=== PATIENT | female | born 1950 | race Caucasian/White ===

== ENCOUNTER 2016-07-27 18:38 | Inpatient (IN) | payer MEDICARE, BC ==
[~2016-07-27] VITALS: Ht 170.1 cm; Wt 99.3 kg
--- NOTE | ~2016-07-27 | CON ---
[place], [place] REPORT [facility] CONSULTATION [id number] UNIT #: [id number] ROOM: 401 DOCTOR: TITUS BRANDON MD BIRTHDATE: [birth year] DOS: 07/28/2016 HISTORY OF PRESENT ILLNESS: This is a 66-year-old -[place] woman with a history of coronary artery disease. She has had coronary stents deployed in the last year and a half or so, details are not available. She had a stress test done in this hospital following stents, and it did not demonstrate any ischemia. She had come to the hospital because of epigastric discomfort. This feeling was not retrosternal, and she still is bothered by it. It did not radiate into the back nor to the shoulders. There is no accompanying nausea, any loss of appetite. She has not noticed any change in color of the stools. She has not had any exertional chest pain or pressure. She has some shortness of breath with exertion. No palpitations, dizziness, or loss of consciousness. She does not wake up short of breath at night. PAST MEDICAL HISTORY: Coronary artery disease as mentioned above, essential hypertension, bullous pemphigoid, seizure disorder, major depression, morbid obesity, diabetes with polyneuropathy. SOCIAL HISTORY: She does not smoke nor does she drink alcoholic beverage. She lives at home. HOME MEDICATIONS: Numerous, that include DuoNeb, Kaopectate, BuSpar, calcium with vitamin D, clopidogrel, folic acid, hydrocodone, acetaminophen, Keppra, levothyroxine, lisinopril, loratadine, lorazepam, magnesium oxide, metoprolol, metronidazole, pravastatin, prednisone, pregabalin/Lyrica, ranitidine, Florastor, sertraline, temazepam, and insulin. PHYSICAL EXAMINATION: GENERAL: The patient is moderately obese. Her complexion is fine. She is not febrile. There is no thyromegaly or finger clubbing. VITAL SIGNS: Pulse is regular at 64, blood pressure 145/85. NECK: Normal JVP. AJR is negative. No bruit in the neck is present. HEART: Auscultation of the heart reveals no murmurs or rubs. The rate is regular. She has no edema in the lower extremities. RESPIRATORY: Lungs are fairly clear to auscultation. ABDOMEN: Epigastrium is tender with no guarding or rigidity. DIAGNOSTIC STUDIES: An ECG showed normal sinus rhythm at 67 beats per minute with complete right bundle branch block and left anterior hemiblock. Previous ECGs have shown same finding. LABORATORY DATA: Troponin-I level is normal. Electrolytes are normal. Potassium 4.3, BUN 16, creatinine 0.79. Liver enzymes are normal. Lipase is 172. Troponin-I is less than 0.015. IMPRESSION: This patient with coronary artery disease, had epigastric pain, not much in terms of chest discomfort. Her EKG is unremarkable. Troponin levels are normal, i.e., she has ruled out for acute myocardial infarction. [place], [place] REPORT OF CONSULTATION NAME: FANY HAMM UNIT #: [id number] ROOM: [facility] DOCTOR: TITUS BRANDON MD BIRTHDATE: [birth year] I do not recommend any further cardiac workup in this patient. Gastrointestinal etiology maybe needed to be sought to explain her symptoms. I thank you for this consult. TITUS BRANDON MD CM:CONSTR:REPORT OF CONSULTATION 07/28/16 0747 interface
--- NOTE | ~2016-07-27 | WRIGHTHP ---
[place], [place] PATIENT HISTORY AND PHYSICAL EXAM NAME: FANY HAMM [facility] #: [id number] UNIT #: [id number] ROOM: 401 DOCTOR: SONYA SOLORZANO MD BIRTHDATE: [birth year] DOS: 07/28/2016 ADMISSION DIAGNOSES AND PAST MEDICAL HISTORY: The patient is a 66-year-old female with a past medical history of: 1. Clostridium difficile colitis in 04/2016. 2. Adult failure to thrive. 3. Obesity. 4. Coronary artery disease of the [place] vessels, status post stent placement. 5. Chronic obstructive pulmonary disease. 6. Benign essential hypertension. 7. Bullous pemphigoid. 8. Hypothyroidism. 9. Mixed hyperlipidemia. 10. History of seizure disorder. 11. History of cerebrovascular accident with left hemiparesis. 12. Type 2 diabetes mellitus, the patient on insulin. HISTORY OF PRESENT ILLNESS: The patient presented to the Emergency Department with complaints of chest pain and was seen by Dr. Gonzáles, who recommended that the patient should be admitted and treated for chest pain. After admission, the patient was seen by her [place] technician, Dr. Chadwick. The patient is symptom free now. The patient's pains were epigastric without any radiation or any other accompanying symptoms. No shortness of breath and no wheezing. The patient has chronic recurrent diarrhea. No abdominal pain and no shortness of breath. REVIEW OF SYSTEMS: LUNGS: No increasing shortness of breath or wheezing. GASTROINTESTINAL: No nausea or vomiting, with chronic recurrent diarrhea. CARDIOVASCULAR SYSTEM: Chest pains before coming to the hospital, but asymptomatic now. FAMILY HISTORY: Noncontributory. SOCIAL HISTORY: She lives at home with the help of her . Denies smoking cigarettes, alcohol and drug abuse. MEDICATIONS: Zoloft, Plavix, DuoNeb, levothyroxine, Pepcid, simvastatin, Keppra, metoprolol, prednisone, lorazepam, buspirone, Lyrica, Flagyl, temazepam, Vicodin, aspirin and DuoNeb. ALLERGIES: KNOWN ALLERGIES TO AMBIEN AND LEVAQUIN. PHYSICAL EXAMINATION: GENERAL: The patient is alert and oriented and morbidly obese with generalized weakness. HEENT AND NECK: Extraocular movements are intact. Sclerae are anicteric. Oral mucosa is moist and clean. No obvious facial weakness. Neck is supple without any lymphadenopathy. No thyromegaly. No JVD. No carotid arterial bruits. LUNGS: Clear to auscultation. No wheezing. No rhonchi. CARDIOVASCULAR SYSTEM: Heart rate is regular in rate and rhythm. S1 and S2 [place], [place] PATIENT HISTORY AND PHYSICAL EXAM NAME: FANY HAMM [facility] #: [id number] UNIT #: [id number] ROOM: 401 DOCTOR: SONYA SOLORZANO MD BIRTHDATE: [birth year] normally audible. No significant murmur or any other abnormal cardiac sounds. ABDOMEN: Soft, nontender. No obvious organomegaly. Bowel sounds are present. No obvious herniation. EXTREMITIES: Without significant cyanosis or edema. Warm to touch. CENTRAL NERVOUS SYSTEM: Alert and oriented x 3. Cranial nerves II-XII are intact. Speech is normal. The patient is able to move all extremities. Normal muscle strength. Deep tendon reflexes are equal on both sides. Plantars were downgoing. IMPRESSION AND PLAN: 1. Chest pains from uncertain etiology with negative cardiac enzymes, troponin I levels. The patient already evaluated by her [place] technician, Dr. Chadwick. Dr. Chadwick feels that her pains are more epigastric and noncardiac and nonischemic. Electrocardiogram was unremarkable. Dr. Chadwick has not recommended any further hospitalization or cardiac workup at this time. I will discharge her to home. The patient's troponin I levels have been negative. 2. Recent Clostridium difficile colitis, treated in April with Flagyl. The patient has chronic recurrent diarrhea. No other signs of infection. The patient's CBC performed at admission shows no leukocytosis or any signs of infection. 3. Generalized disability, obesity and multiple medical problems. Has adult failure to thrive with bed sore precautions, every 2-hour turning and use an air mattress. 4. History of cerebrovascular accident with left-sided weakness and disability. 5. Type 2 diabetes mellitus. The patient does take insulin. Uncontrolled diabetes, blood sugar 195, poor compliance with diet and treatment. 6. Benign essential hypertension, treated and controlled blood pressures. The patient's blood pressures are monitored during her stay at the hospital. 7. History of coronary artery disease of the [place] vessel, status post stent placement about a year and a half back, as reviewed by Dr. Chadwick. SONYA SOLORZANO MD CM:HISPHYS:PATIENT HISTORY AND PHYSICAL EXAMINATION 19 18 SONYA SOLORZANO MD 07/28/16 1920 interface
[~2016-07-27 18:38] MED LIST: ACTOPLUS MET 501 TAB PO; ACTOS15 M1 PO; ACTOS15 MG PO; ACYCLOVIR400 MG PO; ALLERGY10 MG PO; APAP PO; ASPIR-LOW81 MG PO; ASPIRIN CHILDRE80 MG PO; ASPIRIN81 M1 PO; ASPIRIN81 MG PO; ATIVAN0.5 MG PO; ATIVAN1 MG PO; AUGMENTIN 875 M1 TAB PO; AUGMENTIN 875-875 MG PO; AUGMENTIN 875875 MG PO; AYR NASAL GEL22 M1 NAS; B121000 MCG/1 IM; BACTRIM DS 8001 TA1 PO; BISCOLAX5 MG PO; BUMETANIDE1 MG PO; BUSPAR5 MG PO; CALCIUM + D SO1 EACH PO; CEFUROXIME AXE250 MG PO; CEFUROXIME250 MG PO; CEPHALEXIN500 M1 PO; CETIRIZINE HYDR10 MG PO; CHEST CONGESTI400 MG PO; CIPRO500 MG PO; CIPRO750 MG PO; CITALOPRAM20 MG PO; CLARITIN10 MG PO; COREG3.125 MG PO; CRANBERRY1 POW PO; CYMBALTA30 MG PO; DELTASONE2.5 MG PO; DEPAKOTE125 MG PO; DEPAKOTE250 MG PO; DESYREL100 MG PO; DIFLUCAN150 MG PO; DIVALPROEX SOD125 M1; DOXYCYCLINE100 M3 PO; DUONEB 3 MG/3 ML3 M1 INH; DUONEB 3 MG/3 ML3 M1 NEB; DYAZIDE 25 MG-31 CAP PO; EFFIENT10 MG PO; FERRIMIN 150150 M1 PO; FLORASTOR250 MG PO; GENTAMYCIN3 MG/ML OP; GOOD NEIGHBOR150 MG PO; HUMALOG100 U/ML SC; HUMULIN 70/30 703 M1; HUMULIN 70/30 703 M1 SC; HUMULIN 70/30 720 ML SC; HUMULIN R100 U/ML IJ; HUMULIN R100 U/ML SC; HUMULIN SC; INVOKANA100 M1 PO; ISORDIL10 M1 PO; KAOPECTATE525 MG/11 PO; KEFLEX500 M1 PO; KEFLEX500 MG PO; KEPPRA500 MG PO; LANTUS100 U/ML SC; LEVEMIR10 ML SC; LEVOFLOXACIN500 MG PO; LIPITOR80 MG PO; LISINOPRIL2.5 MG PO; LOPRESSOR25 MG PO; LOPRESSOR50 MG PO; LOTRIMIN 1%15 GM T; LYRICA150 MG PO; LYRICA50 M1 PO; LYRICA50 MG PO; LYRICA75 M1 PO; MACROBID100 M1 PO; MAG-OX 400400 MG PO; MAGNESIUM OXID400 MG PO; MAGOX 400400 MG PO; MEDROL DOSEPAK4 MG PO; METFORMIN500 MG PO; METOPROLOL25 MG PO; METRONIDAZOLE500 M1 PO; MIRALAX17 GM/DOSE PO; MOM30 ML PO; MOTRIN800 MG PO; MUCINEX DM 30/61 TAB PO; Metformin Hydr500 MG PO; NASONEX0.05 MG/AC NS; NATURE'S BLEND F1 MG PO; NEXIUM40 MG PO; NILSTAT,MY500000 UN/ PO; NITRO-DUR1 EACH TD; NITROGLYCER0.1 MG/H1 T; NITROGLYCERIN 0.3 MG/HR TD; NITROGLYCERIN0.3 MG SL; NITROSTAT0.4 MG SL; NORCO 5-325 TA1 EACH PO; NORCO 7.5-3251 EACH PO; NOVOLIN 701 UNIT/0.0 SC; NOVOLIN R100 U/ML; NOVOLIN R100 U/ML SC; NYSTATIN CREAM15 GM T; OS-CAL 500 + D1 TAB PO; OSCAL/D,OYSTER250 MG PO; OXYCODONE PO; PEPCID40 MG PO; PERCOCET 325 MG1 TA2 PO; PERCOCET 325 MG1 TA5 PO; PLAVIX75 M1 PO; PLAVIX75 MG PO; PRAVACHOL40 MG PO; PREDNISONE10 MG PO; PREDNISONE20 M1 PO; PREDNISONE20 MG PO; PREDNISONE5 MG PO; PRILOSEC20 M2 PO; PRINIVIL2.5 MG PO; RANEXA500 M1 PO; RESTORIL30 M1 PO; RESTORIL30 MG PO; SALINE NOSE SPR45 ML; SIMVASTATIN20 MG PO; SONATA10 MG PO; SYNTHROID,LEVO25 MCG PO; SYNTHROID,LEVO75 MCG PO; SYNTHROID0.025 MG; SYNTHROID0.125 MG PO; Synthroid,Lev100 MCG PO; Synthroid,Levo50 MCG PO; TESSALON PERLE100 M1 PO; TOPAMAX50 MG PO; TOPROL XL25 MG PO; TRESIBA FL100 UNIT/1 SC; TYLENOL325 M1 PO; TYLENOL325 M2 PO; TYLENOL500 MG PO; Tessalon Perle100 MG PO; VIBRAMYCIN100 MG PO; VITAMIN D31000 I1 PO; VITAMIN D31000 IU PO; VITAMIN D350000 UNIT PO; VITAMIN D50000 I2 PO; XIFAXAN550 MG PO; ZANTAC150 MG PO; ZESTRIL2.5 MG PO; ZITHROMAX250 MG PO; ZOCOR40 MG PO; ZOLOFT100 MG PO; ZOLOFT50 MG PO; [UNRECOGNIZED DRUG - CODE] SC; [UNRECOGNIZED DRUG - OTHER] SC
[2016-07-27 19:47] LABS: BASO % 0.4 % (0.0-1.0); EOS # 0.2 10*3/uL (0.0-0.4); EOS % 2.5 % (1.0-4.0); HEMATOCRIT 51.4 % (37.0-47.0); HEMOGLOBIN 16.4 g/dl (12.0-16.0); LYMPH # 2.3 10*3/uL (1.3-4.4); LYMPH % 29.2 % (27.0-41.0); MEAN CORPUSCULAR HGB 27.4 pg (27.0-31.0); MEAN CORPUSCULAR HGB CONC 31.9 g/dl (33.0-37.0); MONO # 0.4 10*3/uL (0.1-1.0); MONO % 5.7 % (3.0-9.0); NEUT # 4.8 10*3/uL (2.3-7.9); NEUT % 61.7 % (47.0-73.0); PLATELET COUNT AUTOMATED 304 10*3/uL (130-400); RED BLOOD COUNT 5.98 10*6/uL (4.10-5.10); RED CELL DISTRI WIDTH 14.6 % (0-14.5); WHITE BLOOD COUNT 7.7 10*3/uL (4.8-10.8)
[2016-07-27 19:56] LABS: PROTHROMBIN TIME 10.2 SECONDS (9.0-12.4)
[2016-07-27 20:03] LABS: ALBUMIN 3.3 gm/dl (3.1-4.5); ALKALINE PHOSPHATASE 96 U/L (45-117); BILIRUBIN, TOTAL 0.2 mg/dl (0.2-1.0); BUN 16 mg/dl (7-24); CARBON DIOXIDE 28 mmol/L (21-32); CHLORIDE 104 mmol/L (98-107); EST GLOM FILT AFRICAN AMERICAN > 60 ml/min; GLUCOSE 195 mg/dL (65-99); MAGNESIUM 1.8 mg/dL (1.5-2.1); POTASSIUM 4.3 mmol/L (3.5-5.1); SGOT/AST 21 IU/L (3-35); SGPT/ALT 21 U/L (12-78); SODIUM 142 mmol/L (136-145); TOTAL PROTEIN 8.6 gm/dL (6.4-8.2)
[2016-07-27 20:06] LABS: TROPONIN I < 0.015 ng/ml (<0.045)
[2016-07-28 21:40] LABS: BILIRUBIN NEGATIVE (NEGATIVE); BLOOD TRACE-INTACT (NEGATIVE); CLARITY SL CLOUDY (CLEAR); COLOR YELLOW (YELLOW); GLUCOSE 3+ (NEGATIVE); KETONE NEGATIVE (NEGATIVE); LEUKO ESTERASE TRACE (NEGATIVE); NITRITE NEGATIVE (NEGATIVE); PH 5.5 (5.0-9.0); PROTEIN 2+ (NEGATIVE); UROBILINOGEN 0.2 E.U./dl (0.2-1.0)
[2016-07-28 21:51] LABS: YEAST 1+
== END 2016-07-28 22:50 | disposition home or self-care (01) | DRG 206 ==
LOC: ED 18:38 → 4E 20:45 → EDHOLD 20:45 → 4E 21:19
PROVIDERS: Internal Medicine; Nurse Practitioner Family
DX: M94.0 Chondrocostal junction syndrome [Tietze] (principal); E11.65 Type 2 diabetes mellitus with hyperglycemia; I10 Essential (primary) hypertension; I25.10 Atherosclerotic heart disease of native coronary artery without angina pectoris; E66.9 Obesity, unspecified; R62.7 Adult failure to thrive; E78.2 Mixed hyperlipidemia; Z79.4 Long term (current) use of insulin; Z88.8 Allergy status to other drugs, medicaments and biological substances; Z88.1 Allergy status to other antibiotic agents; Z86.73 Personal history of transient ischemic attack (TIA), and cerebral infarction without residual deficits; Z95.5 Presence of coronary angioplasty implant and graft; Z68.34 Body mass index [BMI] 34.0-34.9, adult

== ENCOUNTER 2016-08-09 17:35 | Emergency (ER) | payer MEDICARE, BC ==
[~2016-08-09] VITALS: Ht 170.1 cm; Wt 99.8 kg
[2016-08-09 17:50] VITALS: BP 140/90
[2016-08-09 19:03] LABS: BASO % 0.3 % (0.0-1.0); EOS # 0.2 10*3/uL (0.0-0.4); EOS % 1.7 % (1.0-4.0); HEMATOCRIT 47.4 % (37.0-47.0); HEMOGLOBIN 15.2 g/dl (12.0-16.0); IG # 0.1 10*3/uL (0.0-0.1); LYMPH # 2.7 10*3/uL (1.3-4.4); LYMPH % 29.7 % (27.0-41.0); MEAN CELL VOLUME 85.7 fl (81.0-99.0); MEAN CORPUSCULAR HGB 27.5 pg (27.0-31.0); MEAN CORPUSCULAR HGB CONC 32.1 g/dl (33.0-37.0); MEAN PLATELET VOLUME 10.8 fl (9.6-12.3); MONO # 0.5 10*3/uL (0.1-1.0); MONO % 5.9 % (3.0-9.0); NEUT # 5.6 10*3/uL (2.3-7.9); NEUT % 61.8 % (47.0-73.0); PLATELET COUNT AUTOMATED 349 10*3/uL (130-400); RED BLOOD COUNT 5.53 10*6/uL (4.10-5.10); RED CELL DISTRI WIDTH 14.1 % (0-14.5); WHITE BLOOD COUNT 9.1 10*3/uL (4.8-10.8)
[2016-08-09 19:18] LABS: ALKALINE PHOSPHATASE 91 U/L (45-117); BILIRUBIN, TOTAL 0.3 mg/dl (0.2-1.0); BUN 10 mg/dl (7-24); CARBON DIOXIDE 27 mmol/L (21-32); CHLORIDE 102 mmol/L (98-107); EST GLOM FILT AFRICAN AMERICAN > 60 ml/min; GLUCOSE 174 mg/dL (65-99); POTASSIUM 3.8 mmol/L (3.5-5.1); SGOT/AST 16 IU/L (3-35); SGPT/ALT 16 U/L (12-78); SODIUM 141 mmol/L (136-145); TOTAL PROTEIN 8.1 gm/dL (6.4-8.2)
== END 2016-08-09 19:45 | disposition home or self-care (01) ==
LOC: ED 17:35
PROVIDERS: Registered Nurse
DX: E11.65 Type 2 diabetes mellitus with hyperglycemia (principal); J44.9 Chronic obstructive pulmonary disease, unspecified; Z88.1 Allergy status to other antibiotic agents; Z88.8 Allergy status to other drugs, medicaments and biological substances; Z90.49 Acquired absence of other specified parts of digestive tract; Z79.899 Other long term (current) drug therapy

== ENCOUNTER 2016-09-09 22:41 | Emergency (ER) | payer MEDICARE, BC ==
[~2016-09-09] VITALS: Ht 172.7 cm; Wt 90.7 kg
[2016-09-09 13:12] LABS: BILIRUBIN NEGATIVE (NEGATIVE); BLOOD TRACE-INTACT (NEGATIVE); CLARITY SL CLOUDY (CLEAR); COLOR YELLOW (YELLOW); GLUCOSE 3+ (NEGATIVE); KETONE NEGATIVE (NEGATIVE); LEUKO ESTERASE NEGATIVE (NEGATIVE); NITRITE NEGATIVE (NEGATIVE); PH 5.5 (5.0-9.0); PROTEIN 2+ (NEGATIVE); UROBILINOGEN 0.2 E.U./dl (0.2-1.0)
[2016-09-09 13:47] LABS: URINE REFLEX COMMENT YES (NO)
[2016-09-09 13:48] LABS: BACTERIA 1+; YEAST 1+
[~2016-09-09 22:41] MED LIST changes: +NYSTOP100000 U/G T
[2016-09-09 23:38] LABS: HEMOGLOBIN 16.9 g/dl (12.0-16.0); MEAN CORPUSCULAR HGB 27.6 pg (27.0-31.0); MEAN CORPUSCULAR HGB CONC 32.5 g/dl (33.0-37.0); MEAN PLATELET VOLUME 12.3 fl (9.6-12.3); PLATELET COUNT AUTOMATED 328 10*3/uL (130-400); RED BLOOD COUNT 6.12 10*6/uL (4.10-5.10); RED CELL DISTRI WIDTH 13.9 % (0-14.5); WHITE BLOOD COUNT 15.4 10*3/uL (4.8-10.8)
[2016-09-09 23:51] LABS: PROTHROMBIN TIME 10.1 SECONDS (9.0-12.4)
[2016-09-09 23:56] LABS: BILIRUBIN, TOTAL 0.4 mg/dl (0.2-1.0); LYMPHOCYTE # 6.3 10*3/uL (1.3-4.4); MONOCYTE # 0.8 10*3/uL (0.1-1.0); NEUTROPHIL # 8.3 10*3/uL (2.3-7.9); NEUTROPHILS 54 % (47-73); POTASSIUM 4.9 mmol/L (3.5-5.1); TOTAL CELLS COUNTED 100 #CELLS; TOTAL PROTEIN 7.9 gm/dL (6.4-8.2)
[2016-09-09 23:57] LABS: CKMB 1.6 ng/ml (0.5-3.6); PLATELET SUFFICIENCY NORMAL (NORMAL)
[2016-09-09 23:59] LABS: TROPONIN I 0.147 ng/ml (<0.045)
[2016-09-10 01:59] VITALS: BP 100/68
== END 2016-09-10 02:35 | disposition short-term general hospital (02) ==
LOC: ED 22:41
PROVIDERS: Emergency Medicine; Nurse Practitioner Family
DX: I63.9 Cerebral infarction, unspecified (principal); I21.4 Non-ST elevation (NSTEMI) myocardial infarction; G40.409 Other generalized epilepsy and epileptic syndromes, not intractable, without status epilepticus; J44.9 Chronic obstructive pulmonary disease, unspecified; E10.9 Type 1 diabetes mellitus without complications; R73.9 Hyperglycemia, unspecified; Z86.73 Personal history of transient ischemic attack (TIA), and cerebral infarction without residual deficits; Z88.1 Allergy status to other antibiotic agents; Z88.8 Allergy status to other drugs, medicaments and biological substances; Z79.899 Other long term (current) drug therapy